=== PATIENT | male | born 1990 | race Caucasian/White ===

== ENCOUNTER 2018-09-12 19:31 | Emergency (ER) | payer MEDICAID ==
[~2018-09-12] VITALS: Ht 175.3 cm; Wt 81.6 kg
--- NOTE | 2018-09-12 20:08 | NUR ---
Patient states he was walking down a stair case and sprained his right foot. Dr Edwards into eval patient.
--- NOTE | 2018-09-12 20:50 | NUR ---
Patient discharged to home in stable conditon. Written and verbal after care instructions given. Patient verbalizes understanding of instructions. Walked out of ER with no distress noted
[2018-09-12 20:51] VITALS: BP 110/77
== END 2018-09-12 20:52 | disposition home or self-care (01) ==
LOC: ER 19:33
DX: S93.402A Sprain of unspecified ligament of left ankle, initial encounter (principal); X50.1XXA Overexertion from prolonged static or awkward postures, initial encounter; Y93.89 Activity, other specified; Y92.89 Other specified places as the place of occurrence of the external cause; Y99.8 Other external cause status
CPT/HCPCS: 73610; A4663